=== PATIENT | male | born 1980 | race Caucasian/White ===

== ENCOUNTER 2017-07-15 05:39 | Inpatient (IN) | payer OTHER ==
[2017-07-14 10:36] VITALS: BMI 23.6
[2017-07-15] MEDS ORDERED: Fentanyl 250 MCG/5 ML VIAL ONE (06:11)
[2017-07-15] MEDS ORDERED: Midazolam HCl 2 mg/2 ml Vial ONE (06:11)
[2017-07-15] MEDS ORDERED: Lidocaine 1% w/Epinephrine 1:200K 30 ML VIAL ONE (06:35)
[2017-07-15] MEDS ORDERED: Thrombin 5000 UNITS/5 ML VIAL ONE (06:35)
[2017-07-15] MEDS ORDERED: CEFAZOLIN/Water 2 GM/20 ML SYRINGE ONE ×2 (06:39→10:45)
--- NOTE | 2017-07-15 07:23 | HP ---
HISTORY OF PRESENT ILLNESS: Mr. Calzada is a 37-year-old man, who is known to us for prior ACDF at C6 -C7. He returns now with a worsening symptom presentation of the left upper extremity C6 pathology w ith the MRI from [facility] revealing C5-C6 disk degeneration adjacent to his previous s egment, which is a plus in this. He hopes to move forward with surgery if possible. PAST MEDICAL HISTORY: No significant medical problems. MEDICATIONS: No current medications. ALLERGIES: No known drug allergies. PAST SURGICAL HISTORY: C6-C7 ACDF. PHYSICAL EXAMINATION: The patient is alert and oriented x3. Gait is normal, no ataxia. Upper extre mity motor exam is normal. ASSESSMENT: Cervical radiculopathy. PLAN: Dr. Worrell met with the patient, reviewed imaging and advocated for removal of hardware at C6-C 7 and ACDF at C5-C6. He explained to the patient the risks, benefits, and alternatives to the proced ure. The patient expressed understanding and would like to move forward with surgery as discussed. I do believe the patient is mentally competent and capable of making medical decisions for himself an d we will move forward with surgery as planned.
[2017-07-15] MEDS ORDERED: Meperidine HCl/PF 25 MG/ML VIAL SLOW IVP PRN (07:55)
[2017-07-15] MEDS ORDERED: HYDROmorphone 2 MG/ML VIAL SLOW IVP PRN (07:55)
[2017-07-15] MEDS ORDERED: Promethazine HCl 25 MG/ML VIAL SLOW IVP PRN (07:55)
[2017-07-15] MEDS ORDERED: Morphine Sulfate 2 MG/ML SYRINGE SLOW IVP PRN (07:55)
[2017-07-15] MEDS ORDERED: Fentanyl 100 MCG/2 ML VIAL ONE ×2 (08:28→08:57)
--- NOTE | 2017-07-15 09:24 | OP ---
DATE OF PROCEDURE: 07/15/2017 SURGEON: Dr. Cristian Worrell GRINDING AND SPRAYING SUPERVISOR: None. INDICATION: Pain. DIAGNOSIS: Cervical radiculopathy. PROCEDURE: Anterior cervical diskectomy C5-6 and removal of anterior spinal instrumentation at C6-7. TECHNIQUE: The patient was brought into the operating room and placed under general anesthesia. He was placed on the table in supine position. A transverse incision was planned over the lateral aspec t of the neck on the right. Dr. Christopher Dove was responsible for the cervical exposure down to the p revertebral space. Once we gained access to that area I entered the operative field and remove the a nterior cervical plate and all of its screws at C6-7. We then redirected our attention to the level above at C5-6 where an annulotomy was performed. The disk space and all disk material as well as ant erior and posterior osteophytes were removed. After complete decompression of that segment, a 6 mm l ordotic PEEK cage packed with allograft and autograft material was placed within the interbody space. An anterior cervical plate was then fashioned in front of the spine and secured with a total of 4 f ixed screws. Midline and lateral structures were inspected and found to be free from significant tra daren. The wound was irrigated. Hemostasis was maintained throughout. The wound was then closed in a natomic layers and a pressure dressing was applied. There were no known procedural complications.
--- NOTE | 2017-07-16 16:53 | OP ---
PREOPERATIVE DIAGNOSES: 1. Cervical myelopathy. 2. Need for anterior approach for anterior cervical disk fusion surgery. SURGEON: Jose Dove M.D. ESTIMATED BLOOD LOSS: 10 mL. COMPLICATIONS: None. ANESTHESIA: GETA. NETWORK CABLE INSTALLER: None. PROCEDURE PERFORMED: Anterior approach for anterior cervical disk fusion surgery. PROCEDURE IN DETAIL: The patient was taken to the operating room and placed on the table. General e ndotracheal anesthesia obtained by the Anesthesia staff. Tube was secured in the midline of the uppe r lip. A small shoulder roll was then placed. Patient was informed, prepped and draped for standard surgical procedure. Following this, the previous neck incision was then recreated with a 10 blade, carried through skin, subcutaneous and the platysmal layer. Subplatysmal flaps were gently elevated superiorly and inferiorly. The edge of the sternocleidomastoid muscle was identified and retracted l aterally as dissection was carried medially. The laryngeal structures along the recurrent laryngeal nerve were gently retracted medially as the great vessels were identified and were retracted laterall y. Following this, the prevertebral space was identified and adequate exposure of the previous plate was provided to Dr. Torres Worrell.
== END 2017-07-15 11:05 | disposition home or self-care (01) | DRG 30 ==
LOC: SURG A 05:39 → EDSTATUS 11:06
PROVIDERS: ADMIT Neurological Surgery; ATTEND Neurological Surgery
PROC: 0RG10A0 Fusion of Cervical Vertebral Joint with Interbody Fusion Device, Anterior Approach, Anterior Column, Open Approach (ICD-10-PCS; principal; 2017-07-15)
PROC: 0RB30ZZ Excision of Cervical Vertebral Disc, Open Approach (ICD-10-PCS; 2017-07-15)
PROC: 0RP10AZ Removal of Interbody Fusion Device from Cervical Vertebral Joint, Open Approach (ICD-10-PCS; 2017-07-15)
DX: M54.12 Radiculopathy, cervical region (principal)
CPT/HCPCS: 76001; 96374; C1713; C1776; J2250; J3010